=== PATIENT | female | born 1940 | race Caucasian/White ===

== ENCOUNTER → 2024-03-04 08:32 | Outpatient (REF) | payer OTHER, SELFPAY | LOC: PAVMRI 08:32 | PROVIDERS: ATTENDING PHYSICIAN Anesthesiology; FAMILY PHYSICIAN Internal Medicine | DX: M54.16 Radiculopathy, lumbar region (principal) | CPT/HCPCS: 72148 ==

== ENCOUNTER → 2024-03-08 10:07 | Outpatient (REF) | payer OTHER, SELFPAY | LOC: HWRAD 10:07 | PROVIDERS: ATTENDING PHYSICIAN Internal Medicine | DX: M81.0 Age-related osteoporosis without current pathological fracture (principal) | CPT/HCPCS: 77080 ==

== ENCOUNTER → 2024-07-30 10:30 | Outpatient (REF) | payer OTHER, SELFPAY | LOC: HWRAD 10:30 | PROVIDERS: ATTENDING PHYSICIAN Nurse Practitioner Family | DX: R07.81 Pleurodynia (principal) | CPT/HCPCS: 71101 ==

== ENCOUNTER → 2025-04-11 15:06 | Outpatient (REF) | payer OTHER, SELFPAY | LOC: HWRAD 15:06 | PROVIDERS: ATTENDING PHYSICIAN Internal Medicine; REFERRING PHYSICIAN Internal Medicine Endocrinology, Diabetes & Metabolism | DX: R10.30 Lower abdominal pain, unspecified (principal); R15.1 Fecal smearing | CPT/HCPCS: 74018 ==

== ENCOUNTER → 2025-05-11 10:41 | Outpatient (REF) | payer OTHER, SELFPAY | LOC: RAD 10:41 | PROVIDERS: ATTENDING PHYSICIAN Internal Medicine | DX: R10.30 Lower abdominal pain, unspecified (principal); R15.1 Fecal smearing | CPT/HCPCS: 74177; Q9967 ==

== ENCOUNTER → 2025-06-06 12:49 | Outpatient (REF) | payer OTHER, SELFPAY | LOC: HWRAD 12:49 | PROVIDERS: ATTENDING PHYSICIAN Internal Medicine | DX: R93.89 Abnormal findings on diagnostic imaging of other specified body structures (principal) | CPT/HCPCS: 76830; 76856 ==